=== PATIENT | male | born 1955 | race Caucasian/White ===

== ENCOUNTER 2020-06-22 10:13 | Outpatient (CLI) | payer BC ==
[2020-06-22] MEDS ORDERED: Iopamidol-370 76% 500 ML 1 ML ONE (10:35)
--- NOTE | 2020-06-22 11:25 | CT ---
CT ABDOMEN AND PELVIS WITH AND WITHOUT IV CONTRAST: Date: 06/22/2020 HISTORY: Prostate hyperplasia with urinary tract symptoms. Microhematuria. FINDINGS: There are small blebs in the lung bases. A 2.5 cm cyst is seen in the left lobe of the liver. Calcified gallstones are present. A tiny low den sity lesion is seen in the spleen. The pancreas and adrenal glands are normal. No calculi seen in the kidneys, ureters, or urinary bladder. No hydroureteronephrosis seen on either side. There is an exophytic cyst arising from the right kidney measuring 6.0 x 7.3 cm. There are tiny low density lesions in both kidneys which may be cysts. There is an indeterminate 1.4 cm cortical le tadeo in the left kidney. There is normal contrast excretion into the ureters and the urinary bladder. The prostate is enlarged. No free air, free fluid, or lymphadenopathy seen in the abdomen or pelvis. There are vascular calcifi cations without evidence of aneurysmal dilatation of the abdominal aorta. There is colonic diverticul osis. Degenerative changes are seen in the spine. IMPRESSION: 1. Cholelithiasis. 2. Liver cysts. 3. Right renal cyst. 4. Indeterminate 14 mm lesion in the left renal cortex. 5. Prostatic enlargement. 6. Colonic diverticulosis. RECOMMENDATION: A follow-up exam is recommended in 6 months to evaluate the indeterminate left renal lesion. POS: OFF
== END 2020-06-22 10:14 | disposition home or self-care (01) ==
LOC: BICCT 10:13
PROVIDERS: ATTEND Urology
DX: N40.1 Benign prostatic hyperplasia with lower urinary tract symptoms (principal); R31.29 Other microscopic hematuria; K80.20 Calculus of gallbladder without cholecystitis without obstruction; K76.89 Other specified diseases of liver; N28.1 Cyst of kidney, acquired; K57.30 Diverticulosis of large intestine without perforation or abscess without bleeding
CPT/HCPCS: 74178; 82565; Q9967

== ENCOUNTER 2020-12-20 09:06 | Outpatient (CLI) | payer BC ==
[2020-12-20] MEDS ORDERED: Iopamidol-370 76% 500 ML 1 ML ONE (10:09)
--- NOTE | 2020-12-20 10:26 | CT ---
Exam: Abdomen CT with and without contrast HISTORY: Follow-up left renal mass. Prostatic hyperplasia and microscopic hematuria. COMPARISON: None TECHNIQUE: Abdomen CT is performed with and without contrast following urogram protocol. Coronal refo rmatted images are submitted for interpretation FINDINGS: Lung bases: Chronic changes. Heart: Normal heart size. No significant pericardial fluid. There are coronary artery calcifications Aorta: Normal caliber. No periaortic fat stranding Liver: Hypodensity in the left hepatic lobe, compatible with a 2.0 x 2.2 cm hepatic cyst, unchanged. Spleen: Appropriate enhancement Pancreas: Appropriate enhancement Adrenal glands: Symmetric enhancement Lymph nodes: No gastrohepatic, retrocrural or periportal lymphadenopathy Portal vein: Patent Gallbladder: Cholelithiasis, without evidence of cholecystitis Kidneys: Noncontrast: Exophytic hypodensity emanating from the right renal cortex measures 6.5 x 4.5 cm, martir tible with a complex right renal cyst. Bilaterally no hydronephrosis or nephrolithiasis. Nonspecific mild bilateral perinephric fat stranding. Contrast: Symmetric enhancement of the kidneys. Redemonstration of multiple hypodensities in the left and right renal cortex, the majority of which are too small to characterize. The previously identified 1.4 cm hypodensity on the previous CT has not changed in size. Lesion continues to be too small to characterize. There is questionable associated enhancement. On the arterial phase images, attenuation coefficient is 43 Hounsfield units and on the delayed images, attenuation coefficient is 28 Hounsfield units. There does appear to be a lesion in the medial right cortex which does demonstrate definite enhancement. This lesion has an attenuation coefficient of 40 Hounsfield units o n the noncontrast image, 110 Hounsfield units on the arterial phase image and 59 Hounsfield units on the delayed images. This lesion measures approximately 1.8 x 1.5 cm and is located in the medial c ortex. In retrospect, this lesion was present on the previous examination and does not appear to have changed in size. The lesion is better demonstrated on the current examination. Delayed: No evidence of obstructive uropathy Mesentery: No mass, nephropathy, free air or free fluid Alimentary canal: Limited evaluation due to lack of oral contrast administration. Visualized colon an d small bowel are unremarkable No lytic or blastic lesions in the osseous structures IMPRESSION: 1. Essentially stable hypodensity in the left renal cortex. Lesion is too small to characterize but m ay represent a mildly enhancing lesion versus a complex cystic lesion. 2. Better demonstrated enhancing mass in the medial right cortex. This lesion is approximately 1.8 x 1.4 cm. More definitive characterization with abdomen MRI may be beneficial. Results of study conveyed to Dr. Bosch via [employer] 12/20/2020 at 10:23 AM Code CR Transcribed Date/Time: 12/20/2020 11:27 AM
== END 2020-12-20 09:07 | disposition home or self-care (01) ==
LOC: BICCT 09:06
PROVIDERS: ATTEND Urology
DX: N28.1 Cyst of kidney, acquired (principal); N28.89 Other specified disorders of kidney and ureter
CPT/HCPCS: 74170; Q9967

== ENCOUNTER 2021-05-10 11:28 | Outpatient (CLI) | payer BC ==
[2021-05-10] MEDS ORDERED: Iopamidol 370 76% 100 ML VIAL ONE (13:58)
== END 2021-05-10 11:29 | disposition home or self-care (01) ==
LOC: CT 11:28
PROVIDERS: ATTEND Urology
DX: N28.1 Cyst of kidney, acquired (principal); N28.89 Other specified disorders of kidney and ureter; K80.20 Calculus of gallbladder without cholecystitis without obstruction; I70.90 Unspecified atherosclerosis
CPT/HCPCS: 74170; Q9967

== ENCOUNTER 2021-10-30 06:56 | Outpatient (CLI) | payer BC | END 2021-10-30 06:57 | disposition home or self-care (01) | LOC: BICULT 06:56 | PROVIDERS: ATTEND Urology | DX: N28.1 Cyst of kidney, acquired (principal); N28.89 Other specified disorders of kidney and ureter | CPT/HCPCS: 76770 ==

== ENCOUNTER 2023-09-23 09:57 | Outpatient (CLI) | payer BC | END 2023-09-23 09:58 | disposition home or self-care (01) | LOC: BICCT 09:57 | PROVIDERS: ATTEND Urology | DX: N28.1 Cyst of kidney, acquired (principal); N28.89 Other specified disorders of kidney and ureter | CPT/HCPCS: 74170; 82565 ==